=== PATIENT | male | born 1975 | race Caucasian/White ===

== ENCOUNTER → 2017-11-13 07:13 | Outpatient (CLI) | payer BC, SELFPAY ==
[2017-11-13 10:07] LABS: Absolute Lymphocyte Count 1.62 X10^3/ul (0.83-4.51); Absolute Neutrophil Count 3.1 X10^3/uL (2.0-7.7); Basophil# 0.04 X10^3/uL; Basophil% 0.7 % (0-1); Eosinophils% 3.6 % (0-5); Hematocrit 45.8 % (40-54); Hemoglobin 15.5 g/dl (13.0-16.5); Lymphocyte # 1.62 X10^3/ul (4.0); Mean Corp Hgb Conc 33.8 g/gl (32-36); Mean Corpuscular Hgb 29.9 pg (27.0-32.0); Mean Corpuscular Volume 88.4 fL (80-94); Mean Platelet Vol. 9.8 fl (6.2-12.0); Monocyte# 0.66 X10^3/uL; Monocyte% 11.8 % (0-10); Neutrophil # 3.07 X10^3/uL (2.7-7.7); Neutrophil % 54.9 % (47-70); Platelet Count 254 K/mm3 (150-450); RBC Distribution Width CV 12.7 % (11.6-14.6); RBC Distribution Width SD 40.8 fl (35.1-43.9); Red Blood Count 5.18 M/mm3 (4.6-6.2); White Blood Count 5.6 K/mm3 (4.4-11.0)
[2017-11-13 10:08] LABS: POSITIVE COUNT NO; POSITIVE DIFFERENTIAL NO; POSITIVE MORPHOLOGY NO
[2017-11-13 10:24] LABS: ALB/GLOB Ratio 0.9 RATIO (0.9-2.4); AST(SGOT) 29 U/L (15-37); Alanine Aminotransfer ALT/SGPT 58 U/L (16-61); Albumin, Serum 3.5 g/dL (3.2-5.0); Alkaline Phosphatase 96 U/L (45-117); Anion Gap 9 (5-15); BUN 16 mg/dL (7-18); BUN/Creat Ratio 14.8 RATIO (10-20); Calcium,Total 8.1 mg/dL (8.5-10.1); Chloride 107 mmol/L (98-107); Cholesterol 189 mg/dL (200); Creatinine, Serum 1.08 mg/dL (0.70-1.30); EST Glomerular Filtration Rate 80 mL/min (>60); Est Glom Filt Rate - Afr Amer 97 mL/min (>60); Glucose 89 mg/dL (74-106); High Density Lipoprotein 25 mg/dL; Protein, Total 7.5 g/dL (6.4-8.2); Sodium Level 142 mmol/L (136-145); Triglycerides 215 mg/dL; Very Low Density Lipoprotein 43 mg/dL (5-40)
== END ==
PROVIDERS: Family Provider Family Medicine; PCP Family Medicine
DX: L66.8 Other cicatricial alopecia (principal); Z79.899 Other long term (current) drug therapy
CPT/HCPCS: 36415; 80053; 80061; 85025

== ENCOUNTER → 2017-12-22 07:05 | Outpatient (CLI) | payer BC, SELFPAY ==
[2017-12-22 10:28] LABS: Absolute Lymphocyte Count 1.57 X10^3/ul (0.83-4.51); Basophil# 0.03 X10^3/uL; Basophil% 0.5 % (0-1); Eosinophils% 3.6 % (0-5); Hematocrit 43.9 % (40-54); Hemoglobin 14.7 g/dl (13.0-16.5); Lymphocyte # 1.57 X10^3/ul (4.0); Lymphocyte % 28.4 % (19-41); Mean Corp Hgb Conc 33.5 g/gl (32-36); Mean Corpuscular Hgb 29.9 pg (27.0-32.0); Mean Corpuscular Volume 89.2 fL (80-94); Mean Platelet Vol. 10.1 fl (6.2-12.0); Monocyte# 0.73 X10^3/uL; Monocyte% 13.2 % (0-10); Neutrophil # 2.99 X10^3/uL (2.7-7.7); Neutrophil % 54.1 % (47-70); Platelet Count 271 K/mm3 (150-450); RBC Distribution Width SD 42.2 fl (35.1-43.9); Red Blood Count 4.92 M/mm3 (4.6-6.2); White Blood Count 5.5 K/mm3 (4.4-11.0)
[2017-12-22 10:34] LABS: POSITIVE COUNT NO; POSITIVE DIFFERENTIAL NO; POSITIVE MORPHOLOGY NO
[2017-12-22 10:53] LABS: ALB/GLOB Ratio 0.9 RATIO (0.9-2.4); AST(SGOT) 33 U/L (15-37); Alanine Aminotransfer ALT/SGPT 49 U/L (16-61); Albumin, Serum 3.5 g/dL (3.2-5.0); Alkaline Phosphatase 90 U/L (45-117); Anion Gap 5 (5-15); BUN 22 mg/dL (7-18); BUN/Creat Ratio 19.1 RATIO (10-20); Calcium,Total 8.4 mg/dL (8.5-10.1); Chloride 109 mmol/L (98-107); Cholesterol 169 mg/dL (200); Creatinine, Serum 1.15 mg/dL (0.70-1.30); EST Glomerular Filtration Rate 74 mL/min (>60); Est Glom Filt Rate - Afr Amer 90 mL/min (>60); Globulin 3.7 g/dL (2.2-4.2); Glucose 87 mg/dL (74-106); High Density Lipoprotein 26 mg/dL; Potassium 3.9 mmol/L (3.5-5.1); Protein, Total 7.2 g/dL (6.4-8.2); Sodium Level 143 mmol/L (136-145); Triglycerides 154 mg/dL; Very Low Density Lipoprotein 31 mg/dL (5-40)
== END ==
PROVIDERS: Family Provider Family Medicine; PCP Family Medicine
DX: L66.8 Other cicatricial alopecia (principal); Z79.899 Other long term (current) drug therapy
CPT/HCPCS: 36415; 80053; 80061; 85025

== ENCOUNTER 2020-08-27 18:40 | Emergency (ER) | payer OTHER, SELFPAY ==
[2020-08-27 18:40] VITALS: BP 125/71; PULSE 79; RESP 16; TEMP 36; O2SAT 98; BMI 28.7
--- NOTE | 2020-08-27 18:57 | ED.VIS.GEN ---
History of Present Illness Chief Complaint: Lower Extremity Injury Informant: Patient Narrative: 45-year-old male presenting with right leg pain. He states is in his right calf. He is day 11 of Covid?19 but states he had minimal symptoms. He states that his symptoms were really just cough and cold symptoms for 3 days. He has recovered well. He is eating and drinking normally. He denies chest pain, palpitations, shortness of breath. He does not have any fevers, myalgias, change in taste or smell. Patient denies any significant medical history. Past Medical History - Allergies and Home Meds Allergies/Adverse Reactions: Allergies No Known Allergies Allergy (Verified 08/27/20 18:40) Primary Care Physician: Zeb Pena MD [Primary Care Provider] - Prior records reviewed: Yes Past Medical History: - - History of Covid?19 Surgical History: noncontributory Lives: Spouse/ Significant Other Smoking Status: Never smoker Alcohol: None Drugs: None Review of Systems General: Denies: Chills, Fever, Sweats Eyes: Denies: Visual changes - bilaterally, Diplopia ENT: Denies: Rhinorrhea, Sore throat Cardiovascular: Denies: Chest pain, Palpitations Respiratory: Denies: Dyspnea, Cough, Dyspnea on exertion Gastrointestinal: Denies: Abdominal pain, Nausea, Vomiting, Diarrhea, Melena, Hematochezia Genitourinary: Denies: Dysuria, Hematuria, Frequency Musculoskeletal: Reports: Extremity Pain - Right calf. Denies: Swelling Skin: Denies: Rash, Wounds Neurological: Denies: Headache, Weakness, Numbness Physical Exam Vital Signs/Narrative: Vital Signs Temp Pulse Resp BP Pulse Ox 08/27/20 18:40 96.8 F L 79 16 125/71 H 98 Inital Vital Signs reviewed: Yes General: Well nourished, Well developed, No Acute Distress Head: Normocephalic, Atraumatic Eyes: Perrl, EOMI ENT: Moist mucous membranes, No rhinorrhea Neck: Supple, Nontender Cardiovascular: Regular rate, Regular rhythm, No murmurs Respiratory: No distress, CTA bilaterally, Chest nontender Abdomen: Nondistended Extremities: No edema, Calf Tenderness - Right calf. No cords palpated. Negative Homans' sign. Skin: Normal color, No rash Neurological: Alert, Oriented x3 Psychological: Normal affect, Normal Mood Diagnostic/Tx/Re-eval - Medical Decision Making 45-year-old male with history of Covid?19 x 11 days. He states he is recovered from a respiratory standpoint. He has been quarantined at his home. He states that he developed right calf pain. Patient has no history of DVT/PE. Patient will require DVT study however it is Friday evening and we have no manufacturing technologist available. He will be given weight-based Lovenox overnight and follow-up outpatient for DVT study tomorrow. Patient is given signs and symptoms which warrant return to the ED. Impression: 1. Right calf pain 2. History of Covid?19 infection ED Disposition - Plan for ED Patient: Disposition: Home or Assisted Living Instructions: ED Leg Spasm Referrals: Zeb Pena MD [Primary Care Provider] -
[2020-08-27] MEDS: Enoxaparin 100 MG/ML Syringe 90 MG SC (19:25)
[2020-08-27 19:50] VITALS: PULSE 70; RESP 15
== END 2020-08-27 19:51 | disposition home or self-care (01) ==
PROVIDERS: Emergency Provider Student in an Organized Health Care Education/Training Program; PCP Family Medicine
DX: M79.661 Pain in right lower leg (principal); Z86.19 Personal history of other infectious and parasitic diseases
CPT/HCPCS: 96372; 99282

== ENCOUNTER → 2020-08-28 13:54 | Outpatient (CLI) | payer OTHER, SELFPAY ==
[2020-08-27 18:40] VITALS: BMI 28.7
--- NOTE | 2020-08-28 14:02 | VDLE_ITS ---
Reason For Study: Pain RIGHT GSV is normal. CFV is compressible, spontaneous, phasic, competent and demonstrates normal augmentation. FV is compressible, spontaneous, phasic, competent and demonstrates normal augmentation. POP V is compressible, spontaneous, phasic, competent and demonstrates normal augmentation. T/P Trunk is compressible. PTV is compressible. RT PerV is compressible. Procedure This is a venous duplex using B-mode, color flow and spectral Doppler. Exam performed in department. A preliminary report was called and/or faxed to PCP: Jean. Pt seen in ED , done as next day scan. Interpretation Summary There is no evidence of right lower extremity deep vein thrombosis. Right great saphenous vein appears patent and compressible segmentally. Ordering Physician: Benson Mckeon Referring Physician: Zeb Pena Performed By: Alana Burrell RVT
== END ==
PROVIDERS: PCP Family Medicine; Referring Provider Student in an Organized Health Care Education/Training Program; Visit Provider Student in an Organized Health Care Education/Training Program
DX: M79.604 Pain in right leg (principal)
CPT/HCPCS: 93971